=== PATIENT | male | born 1995 | race Caucasian/White ===

== ENCOUNTER 2019-04-24 16:41 | Emergency (ER) | payer MEDICAID, SELFPAY ==
[2019-04-24 16:55] VITALS: BP 147/91; PULSE 96; RESP 17; TEMP 36.8; O2SAT 99; BMI 22.1
[2019-04-24 18:24] LABS: Basophils # 0.1 10^3/uL (0.0-0.1); Basophils % 0.5 %; Eosinophils # 0.1 10^3/uL (0.0-0.8); Eosinophils % 0.8 %; Hematocrit 45.7 % (42.0-52.0); Hemoglobin 15.2 g/dL (11.7-16.6); Lymphocytes # 2.3 10^3/uL (0.8-4.8); Lymphocytes % 17.7 %; Mean Corpuscular HGB Conc 33.3 g/dL (30.0-36.0); Mean Corpuscular Hemoglobin 30.3 pg (28.0-34.0); Mean Corpuscular Volume 91.2 fL (80-94); Mean Platelet Volume 10.1 fL (7.4-10.4); Monocytes # 1.3 10^3/uL (0.2-0.9); Neutrophils # 9.2 10^3/uL (1.8-7.7); Neutrophils % 70.7 %; Nucleated Red Blood Cells % 0 %; Platelet Count 335 10^3/cmm (130-400); Red Blood Count 5.01 10^6/uL (4.1-5.3); Red Cell Distribution Width 12.4 % (12.1-15.1); White Blood Count 12.9 10^3/uL (4.0-10.0)
[2019-04-24 18:40] LABS: Alanine Aminotransferase 56 U/L (0-41); Albumin Level 4.7 g/dL (3.5-5.2); Alkaline Phosphatase 96 IU/L (40-130); Anion Gap 17.4 (5-19); Aspartate Amino Transferase 39 U/L (0-40); Blood Urea Nitrogen 26 mg/dL (6-20); Calcium 10.2 mg/dL (8.5-10.5); Carbon Dioxide 28 mmol/L (22-29); Chloride 102 mmol/L (98-107); Globulin 3.2 g/dL (1.3-4.6); Glucose 85 mg/dL (65-115); Lipase 35 U/L (13-60); Potassium 4.4 mmol/L (3.5-5.1); Sodium 143 mmol/L (136-145); Total Bilirubin 0.5 mg/dL (0.15-1.2); Total Protein 7.9 g/dL (6.6-8.7)
[2019-04-24 21:41] VITALS: BP 137/100; PULSE 94; RESP 18; O2SAT 100
--- NOTE | 2019-04-24 21:42 | ED_ITS ---
Entered by Queenie Robles, acting as scribe for Ayesha Welch MD Apr 24, 2019 16:41 HPI - Abdominal Pain General: Chief Complaint: Abdominal Pain Stated Complaint: LEFT SIDE PAIN Time Seen by Provider: 04/24/19 21:38 Source: patient Mode of arrival: ambulatory History of Present Illness: HPI narrative: 3 y/o male presents to the ED with complaint of abd pain that radiates into his side. Upon arrival, pt states the pain seems to be more in his back. 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 He worked for 5 hours today and was unable to return to work due to the pain and reduced ROM. His boss told him he could not come back to work without a doctors note. MD elicited complaint: abdominal pain and other (back pain) Pertinent past history: kidney stones Onset (ago): hour(s) Pain Consistency: constant Severity: mild Exacerbating factors: movement Context: other (heavy lifting at work) Associated Symptoms: Denies chills, diarrhea, dysuria, fever(s), nausea and vomiting Review of Systems Const: Denies: fever, chills, body aches or change in appetite Eyes: Denies: blurry vision or eye discomfort ENMT: Denies: throat pain or dental pain Card: Denies: chest pain Resp: Denies: shortness of breath GI: Reports: abdominal pain; Denies: nausea, vomiting or diarrhea : Denies: painful urination Musc: Reports: back pain, limited range of motion and muscle cramps; Denies: neck pain Skin/Breast: Denies: rash Neuro: Denies: headache Psych: Denies: depression Levi/Lymph: Denies: easy bruising All/Imm: Denies: hives PFS ED PFSH: Social History Smoking and tobacco status: current every day smoker Physical Exam Const: COMMON NORMALS: no apparent distress and oriented x3 HENMT: COMMON NORMALS: normocephalic and head/scalp atraumatic HEAD & SCALP: normocephalic and atraumatic Eye: COMMON NORMALS: PERRL and EOMs intact bilaterally PUPIL: Yes PERRL Neck/C-Spine: COMMON NORMALS: full ROM and supple Chest: COMMONS NORMALS: inspection of chest normal and palpation of chest normal Resp: COMMON NORMALS: normal respiratory effort, no retractions, no use of accessory muscles and clear to auscultation bilaterally AUSCULTATION: clear to auscultation bilaterally Cardio: COMMON NORMALS: regular rate, regular rhythm and no murmurs RATE: regular rate RHYTHM: regular rhythm GI: COMMON NORMALS: normal to inspection, nondistended, normoactive bowel sounds, soft to palpation, non-tender and no masses PALPATION: Yes soft Back/Pelvis: LUMBAR SPINE/LOWER BACK: Yes ROM limited (muscle spasms) and Yes pain with ROM Extremity: COMMON NORMALS: normal to inspection and full ROM Neuro: COMMON NORMALS: oriented x3, moves all extremities and no focal motor deficits Psych: COMMON NORMALS: mental status grossly normal, thought process normal and cooperative THOUGHT PROCESS: normal thought process Skin: COMMON NORMALS: no rashes or lesions noted and no wounds GENERAL SKIN EXAM: no rashes or lesions noted Course Vital Signs: Vital signs: Vital Signs Temperature 98.2 F 04/24/19 16:55 Pulse Rate 98 04/24/19 21:56 Respiratory Rate 18 04/24/19 21:56 Blood Pressure 130/100 04/24/19 21:56 Pulse Oximetry 98 04/24/19 21:56 MDM - Abdominal Pain MDM Narrative: Medical decision making narrative: Patient presents with low back pain that is likely muscular in nature. He is point tender over his left lower back. He has no signs of kidney stone and no CVA tenderness. Patient abdominal exam is benign with no belly pain. We will place him on Naprosyn and Robaxin he is to do light lifting at work. He is stable for discharge. Lab Data: Labs: Lab Results 04/24/19 04/24/19 Range/Units 18:10 18:10 WBC 12.9 H (4.0-10.0) 10^3/ uL RBC 5.01 (4.1-5.3) 10^6/u L Hgb 15.2 (11.7-16.6) g/dL Hct 45.7 (42.0-52.0) % MCV 91.2 (80-94) fL MCH 30.3 (28.0-34.0) pg MCHC 33.3 (30.0-36.0) g/dL RDW 12.4 (12.1-15.1) % Plt Count 335 (130-400) 10^3/c mm MPV 10.1 (7.4-10.4) fL Neut % (Auto) 70.7 % Lymph % (Auto) 17.7 % [place] % (Auto) 10.0 % Eos % (Auto) 0.8 % Baso % (Auto) 0.5 % Neut # (Auto) 9.2 H (1.8-7.7) 10^3/u L Lymph # (Auto) 2.3 (0.8-4.8) 10^3/u L [place] # (Auto) 1.3 H (0.2-0.9) 10^3/u L Eos # (Auto) 0.1 (0.0-0.8) 10^3/u L Baso # (Auto) 0.1 (0.0-0.1) 10^3/u L Nucleated RBC % (a uto) 0 % Nucleated RBCs # 0.0 /100WBC Sodium 143 (136-145) mmol/L Potassium 4.4 (3.5-5.1) mmol/L Chloride 102 (98-107) mmol/L Carbon Dioxide 28 (22-29) mmol/L Anion Gap 17.4 (5-19) BUN 26 H (6-20) mg/dL Creatinine 1.2 (0.7-1.2) mg/dL GFR Calculation 75.0 L (90-130) mL/min Glucose 85 (65-115) mg/dL Calcium 10.2 (8.5-10.5) mg/dL Total Bilirubin 0.5 (0.15-1.2) mg/dL AST 39 (0-40) U/L ALT 56 H (0-41) U/L Alkaline Phosphata se 96 (40-130) IU/L Total Protein 7.9 (6.6-8.7) g/dL Albumin 4.7 (3.5-5.2) g/dL Globulin 3.2 (1.3-4.6) g/dL Lipase 35 (13-60) U/L Discharge Plan Discharge Patient Disposition: Home, Self-Care Clinical Impression: Lumbar spine strain Qualifiers: Encounter type: initial encounter Qualified Code(s): S39.012A - Strain of muscle, fascia and tendon of lower back, initial encounter Condition: Stable Prescriptions: New Robaxin-750 750 mg tablet 750 mg PO Q6H Qty: 30 RF: 0 EC-Naprosyn 500 mg tablet,delayed release (DR/EC) 500 mg PO BID PRN (Reason: pain) Qty: 20 RF: 0 Discharge Orders: Discharge Order (Routine); Ordered 04/24/19 Ordered By: Ayesha Welch Discharge Diet: Advance as tolerated Discharge Activity: Resume usual activity Patient Instructions: Low Back Strain (ED) Stand Alone Forms: Work/School Release Discharge Date/Time: 04/24/19 21:57 Coding Level of Care Code ED Front End Technician for Chg Fwd Exam Comprehensive The documentation recorded by the Travis clark Ashley, accurately reflects the service I personally performed and the decisions made by Rebekah pantoja Korby, MD Apr 24, 2019 16:41
[2019-04-24] MEDS: ketorolac 60 mg/2 mL INJ IM (21:46)
[2019-04-24 21:56] VITALS: BP 130/100; PULSE 98; RESP 18; O2SAT 98
== END 2019-04-24 21:57 | disposition home or self-care (01) ==
PROVIDERS: Emergency Provider Emergency Medicine
DX: S39.012A Strain of muscle, fascia and tendon of lower back, initial encounter (principal); F17.200 Nicotine dependence, unspecified, uncomplicated; X50.0XXA Overexertion from strenuous movement or load, initial encounter; Y92.89 Other specified places as the place of occurrence of the external cause
CPT/HCPCS: 36415; 80053; 83690; 85025; 96372; 99281; 99283; J1885

== ENCOUNTER → 2019-06-12 14:05 | Outpatient (BNVA) | payer MEDICAID, SELFPAY | PROVIDERS: Visit Provider Family Medicine | DX: N50.819 Testicular pain, unspecified (principal); R52 Pain, unspecified | CPT/HCPCS: 81003; 87491; 87591 ==